=== PATIENT | male | born 1975 | race Caucasian/White ===

== ENCOUNTER 2021-04-30 12:31 | Emergency (ER) | payer BC ==
[~2021-04-30] VITALS: Ht 175.3 cm; Wt 90.7 kg
[2021-04-30 12:33] VITALS: BP 140/92
[2021-04-30] MEDS ORDERED: KETOROLAC 60 MG/2 ML VIAL IM ONE (12:45)
[2021-04-30 13:41] VITALS: BP 140/92
== END 2021-04-30 13:38 | disposition home or self-care (01) ==
LOC: MED 12:31
DX: M25.531 Pain in right wrist (principal); Z90.49 Acquired absence of other specified parts of digestive tract
CPT/HCPCS: 29125; 73110; 96372; 99283; J1885